=== PATIENT | female | born 1985 | race Caucasian/White ===

== ENCOUNTER 2019-03-22 23:08 | Emergency (ER) | payer SELFPAY ==
[~2019-03-22] VITALS: Ht 165.1 cm; Wt 43.1 kg
[2019-03-22] MEDS ORDERED: NKM (23:33)
[2019-03-22 23:35] VITALS: BP 110/64
--- NOTE | 2019-03-22 23:35 | NUR ---
ED Nurse Note: pt walked into ED C/O Nausea and vomiting since late afternoon today. pt stated she vomitted about 30 min ago, and she feels better after vomiting. pt is alert x4.
--- NOTE | 2019-03-22 23:43 | Emergency Room Report ---
History of Present Illness General Chief Complaint: Nausea, Vomiting, and Diarrhea Source: Patient Present Illness HPI Disclaimer: Please note that this report is being documented using [employer] technology. This can lead to erroneous entry secondary to incorrect interpretation by the dictating instrument. HPI: Otherwise healthy 34-year-old female presents for evaluation of vomiting and diarrhea. She is here with her who has similar symptoms. They began earlier today complaining of nonbloody emesis and a few episodes of diarrhea. She is able to drink to stay hydrated though is persistently vomiting. Denies fevers, chills, sore throat, hematemesis, hematochezia, melena , dysuria, hematuria, vaginal bleeding. Otherwise healthy and takes no medications. She vomited prior to arrival in the emergency department and states it significantly improved her symptoms. She is complaining of mild nausea at this time. PMH: Denies PSH: Denies Allergies: Denies Social Hx: Occasional alcohol use Allergies: Coded Allergies: No Known Allergies (Unverified , 03/22/19) Patient History Last Menstrual Period: currently breast feeding Now: No Nursing Documentation-PMH Past Medical History: No Stated History Review of Systems All Other Systems: negative except mentioned in HPI Physical Exam Vital Signs Date Time Temp Pulse Resp B/P (MAP) Pulse Ox O2 Delivery O2 Flow Rate FiO2 03/22/19 23:27 98.2 81 18 107/64 (78) 98 Room Air General: Awake and alert, no acute distress HEENT: NC/AT. EOMI. moist mucous membranes Cardiovascular: RRR. S1 and S2 normal. No murmur appreciated, capillary refill less than 2 seconds Resp: Normal work of breathing. No cough, wheezing or crackles appreciated Abdomen: Abdomen is soft, nondistended. Nontender, no masses appreciated Skin: Intact. No abrasions, laceration or rash over the exposed skin MSK: Normal tone and bulk. Moving all extremities. No obvious deformity. Neuro: Awake and alert. Mentating appropriately. Medical Decision Making Diagnostic Impression: Primary Impression: Nausea, vomiting, and diarrhea ER Course Is an otherwise healthy 34-year-old female presenting for evaluation of nausea, vomiting and diarrhea of one days duration. Her is also in the emergency department with similar symptoms. Believe this is likely a viral gastroenteritis or related to the food he ate earlier. She is overall well- appearing, afebrile with stable vital signs and a reassuring physical exam. Will provide Zofran in the emergency department and PO challenge. If she is able to tolerate fluids she has no clinical signs of dehydration can be followed up as an outpatient with continued antiemetic therapy. Otherwise, can advance work-up as needed. Last Vital Signs Date Time Temp Pulse Resp B/P (MAP) Pulse Ox O2 Delivery O2 Flow Rate FiO2 03/22/19 23:27 98.2 81 18 107/64 (78) 98 Room Air Reevaluation Impression Patient was able to drink water in the emergency department. She is requesting discharge home with outpatient treatment. Appropriate for outpatient follow- up. Discussed reasons to return to the emergency department as well as need to see a PMD. She understands and agrees with this treatment plan will be discharged home. Disposition: HOME, SELF-CARE Condition: Stable Scripts Ondansetron Odt* (ZOFRAN ODT*) 4 Mg Tab.rapdis 4 MG BC EVERY 6 HOURS PRN for Nausea & Vomiting, #20 TAB 0 Refills Prov: César Zelaya MD 03/22/19 César Zelaya MD Mar 22, 2019 23:42
[2019-03-22] MEDS ORDERED: ONDANSETRON ODT4 MG BC (23:44)
[2019-03-23 00:03] VITALS: BP 115/71
--- NOTE | 2019-03-23 00:03 | NUR ---
ER DISCHARGE NOTE: Patient is cleared to be discharged per ERMD, pt is aox4, on room air, with stable vital signs. pt was given dc and prescription instructions, pt was able to verbalize understanding, pt id band removed without complications. pt is able to ambulate with steady gait. pt took all belongings.
== END 2019-03-23 00:03 | disposition home or self-care (01) ==
LOC: EMR 23:41
DX: R11.2 Nausea with vomiting, unspecified (principal); R19.7 Diarrhea, unspecified
CPT/HCPCS: 99282